=== PATIENT | female | born 1970 | race Caucasian/White ===

== ENCOUNTER → 2019-12-20 | Outpatient (CLI) | payer BC | LOC: MC.RAD 12:45 | DX: N63.21 Unspecified lump in the left breast, upper outer quadrant (principal) ==

== ENCOUNTER → 2020-06-21 | Outpatient (CLI) | payer BC | LOC: MC.RAD 12:53 | DX: N63.20 Unspecified lump in the left breast, unspecified quadrant (principal) ==

== ENCOUNTER → 2022-01-14 | Outpatient (CLI) | payer OTHER, BC | LOC: COL.RAD 08:27 | DX: M25.541 Pain in joints of right hand (principal) | CPT/HCPCS: J3301; Q9967 ==